=== PATIENT | female | born 1990 | race Caucasian/White ===

== ENCOUNTER → 2021-07-21 | Day surgery (SDC) | payer BC ==
[~2021-07-21] MED LIST: AYGESTIN5 MG PO; BUPIVACAINE 0.25% 30ML SDV ONE; DICYCLOMINE HCL20 MG PO; FENTANYL CITRATE/PF 100MCG/2 ML INJ ONE; LIDOCAINE 1% W/EPINEPHRINE 20 ML VIAL ONE; ONDANSETRON HCL INJ 2MG/ML 2ML 2 MG/ML VIAL ONE; PANTOPRAZOLE SO40 MG PO; QUESTRAN PACKET4 GM PO; SODIUM CHLORIDE 0.9% 50ML 100 ML ONE; VITAMIN D310 MCG PO
[2021-07-21 19:40] VITALS: BP 154/108
== END | disposition home or self-care (01) ==
LOC: OR 12:36
PROVIDERS: ATTEND Orthopaedic Surgery
DX: M25.362 Other instability, left knee (principal); M22.42 Chondromalacia patellae, left knee; M25.862 Other specified joint disorders, left knee; M23.301 Other meniscus derangements, unspecified lateral meniscus, left knee; M67.52 Plica syndrome, left knee; Z01.812 Encounter for preprocedural laboratory examination; Z20.822 Contact with and (suspected) exposure to COVID-19; Z91.040 Latex allergy status
CPT/HCPCS: 27415; 27418; 29881; 81025; C1713 ×4; C1889; J0690; J2405; J3010; U0002; 76000